=== PATIENT | female | born 1950 | race Caucasian/White ===

== ENCOUNTER → 2025-08-07 11:26 | Outpatient (CLI) | payer OTHER, SELFPAY ==
[2025-08-07 12:21] LABS: Hematocrit 41.8 % (36-46); Hemoglobin 14.1 g/dL (12.0-16.0); Mean Corpuscular HGB Conc 33.7 % (30-36); Mean Corpuscular Hemoglobin 29.9 PG (26-34); Mean Corpuscular Volume 88.7 fL (80-100); Platelet Count 235 X10^3/uL (150-400)
[2025-08-07 12:22] LABS: Add Manual Diff / Slide Review YES
[2025-08-07 12:34] LABS: Atypical Lymphocytes Percent 52.0 %; Eosinophils Percent Manual 1.0 % (2-4); Lymphocytes Percent Manual 8.0 % (25-45); Monocytes Percent Manual 2.0 % (2-11); Neutrophils Absolute Manual 5550 /uL (3000-5900); RBC Morphology Normal Morphology; Segmented Neutrophils Percent 37.0 % (38-70); Total Cells Counted 100
--- NOTE | 2025-08-07 12:34 | EKG_ITS ---
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
[2025-08-07 12:35] LABS: Albumin 4.8 g/dL (3.5-5.0); Blood Urea Nitrogen 18 mg/dL (7-17); Calcium 9.4 mg/dL (8.4-10.2); Carbon Dioxide 24 mmol/L (22-32); Chloride 107 mmol/L (98-107); Estimated Glomerular Filt Rate > 60 mL/min (>60); Glucose 108 mg/dL (70-99); HEMOLYSIS 25 (0-50); Potassium 5.0 mmol/L (3.4-5.1); Sodium 141 mmol/L (137-145)
[2025-08-07 12:42] LABS: Prealbumin 29.6 mg/dL (17.6-36.0)
[2025-08-07 13:09] LABS: Hemoglobin A1C% w Est Avg Glu 5.5 % (4.0-6.0)
[2025-08-07 16:42] LABS: Vitamin D 25 Hydroxy (D3) 33.2 ng/mL (30.0-100.0)
== END ==
PROVIDERS: PCP Physician Assistant; Referring Provider Orthopaedic Surgery Adult Reconstructive Orthopaedic Surgery; Visit Provider Orthopaedic Surgery Adult Reconstructive Orthopaedic Surgery
DX: Z01.818 Encounter for other preprocedural examination (principal)
CPT/HCPCS: 36415; 80048; 82040; 82306; 83036; 84134; 85007; 85025; 93005

== ENCOUNTER → 2025-08-07 12:05 | Outpatient (CLI) | payer OTHER, SELFPAY ==
--- NOTE | 2025-08-07 12:05 | DI.RAD.S_ITS ---
PROCEDURE: XR DEXA AXIAL SKELETON INDICATIONS: pre-op planning COMPARISON: None. FINDINGS: Lumbar Spine: Bone mineral density 1.171 g/cm2, T score 1.1, normal. Right Femoral Neck: Bone mineral density 0.730 g/cm2, T score -1.1, osteopenia. Right Hip: Bone mineral density 0.770 g/cm2, T score -1.4, osteopenia. Fracture Risk Calculation (when applicable): 10-year fracture risk of a major osteoporotic fracture 11 percent and of a hip fracture 1.8 percent. (T score greater or equal to -1.0 to: NORMAL) (T score from -1.1 to -2.4: OSTEOPENIA) (T score less than or equal to -2.5: OSTEOPOROSIS) IMPRESSION: Osteopenia elevates the patient's 10 year fracture risk as described. Follow-up guidelines as follows: Osteoporosis: Consider a repeat DEXA and Vertebral Fracture Assessment (VFA) exam in 2 years or sooner if medically necessary, to reassess this patient's status. Osteopenia: Consider a repeat DEXA in 2-3 years to reassess this patient's status, or if there is a new clinical indication. Normal: Consider a repeat DEXA in 5 years or sooner, or if there is a new clinical indication. All treatment decisions require clinical judgment and consideration of individual patient factors, including patient preferences, comorbidities, previous drug use, risk factors not captured in the FRAX model (e.g., frailty, falls, vitamin D deficiency, increased bone turnover, interval significant decline in bone density ) and possible under- or over-estimation of fracture risk by FRAX. In addition, the NOF Guide recommends that FDA-approved medical therapies be considered in postmenopausal women and men age >= 50 years with a: * Hip or vertebral (clinical or morphometric) fracture * T-score of <=-2.5 at the spine or hip * Ten-year fracture probability by FRAX of >= 3% for hip fracture or >=20% for major osteoporotic fracture. Dictated by: Janet sAtudillo M.D. on 08/07/2025 at 22:05 Approved by: Janet Astudillo M.D. on 08/07/2025 at 22:06
== END ==
PROVIDERS: PCP Physician Assistant; Referring Provider Orthopaedic Surgery Adult Reconstructive Orthopaedic Surgery; Visit Provider Orthopaedic Surgery Adult Reconstructive Orthopaedic Surgery
DX: Z01.818 Encounter for other preprocedural examination (principal); M85.89 Other specified disorders of bone density and structure, multiple sites
CPT/HCPCS: 36415; 77080; 80048; 82040; 82306; 83036; 84134; 85007; 85025; 93005; 93010